=== PATIENT | female | born 1975 | race African-American/Black ===

== ENCOUNTER 2018-08-10 22:05 | Emergency (ER) | payer SELFPAY ==
[~2018-08-10] VITALS: Ht 165.1 cm; Wt 77.6 kg
[2018-08-10 22:25] VITALS: Ht 165.1 cm; Wt 77.6 kg
[2018-08-10 23:04] VITALS: BP 118/63
== END 2018-08-10 23:04 | disposition home or self-care (01) ==
LOC: ED 22:05
DX: R23.8 Other skin changes (principal); I10 Essential (primary) hypertension; Z88.1 Allergy status to other antibiotic agents